=== PATIENT | female | born 1940 | race Caucasian/White ===

== ENCOUNTER 2021-06-21 18:22 | Inpatient (IN) | payer MEDICARE ==
[~2021-06-21] VITALS: Ht 152.4 cm; Wt 53.0 kg
[2021-06-21 18:49] LABS: BASO # 0.1 x10^3/uL (0.0-0.2); BASO % 1 % (0-3); EOS # 0.1 x10^3/uL (0.0-0.7); EOS % 1 % (0-3); HEMATOCRIT 38.9 % (36.0-47.0); HEMOGLOBIN 13.1 g/dL (12.0-15.5); LYMPH % 26 % (24-48); MEAN CORPUSCULAR HEMOGLOBIN 29 pg (25-35); MEAN CORPUSCULAR HGB CONC 34 g/dL (31-37); MEAN CORPUSCULAR VOLUME 87 fL (79-100); MONO # 0.5 x10^3/uL (0.0-1.1); MONO % 7 % (0-9); NEUT # 4.9 x10^3/uL (1.8-7.7); NEUT % 65 % (31-73); PLATELET COUNT 250 x10^3/uL (140-400); RED BLOOD COUNT 4.48 x10^6/uL (3.50-5.40); RED CELL DISTRIBUTION WIDTH 13.5 % (11.5-14.5); WHITE BLOOD COUNT 7.6 x10^3/uL (4.0-11.0)
[2021-06-21 19:07] LABS: ANION GAP 10 (6-14); BLOOD UREA NITROGEN 14 mg/dL (7-20); CARBON DIOXIDE 28 mmol/L (21-32); CHLORIDE 105 mmol/L (98-107); CREATININE 0.9 mg/dL (0.6-1.0); GFR 60.1; GLUCOSE 117 mg/dL (70-99); POTASSIUM 4.4 mmol/L (3.5-5.1); SODIUM 143 mmol/L (136-145)
[2021-06-21 19:21] LABS: ALBUMIN 3.3 g/dL (3.4-5.0); ALK PHOS 115 U/L (46-116); ALT (SGPT) 26 U/L (14-59); AST (SGOT) 34 U/L (15-37); CREATINE KINASE 65 U/L (26-192); DIRECT BILIRUBIN < 0.1 mg/dL (0.0-0.2); MAGNESIUM 2.3 mg/dL (1.8-2.4); TOTAL BILIRUBIN 0.5 mg/dL (0.2-1.0); TOTAL PROTEIN 6.4 g/dL (6.4-8.2)
--- NOTE | 2021-06-21 20:27 | PHYS DOC ---
Past Medical History Past Surgical History: Other Smoking Status: Unknown if ever smoked Alcohol Use: None General Adult EDM: Chief Complaint: ALTERED MENTAL STATUS HPI: HPI: Patient is a 81 year old female who presents with syncope at her correction, sudden, associated with a heart rate in the 40s on scene. When the patient arrives emergency department her vital signs are stable but she is quieter than normal as per family. Family says she had a very similar episode in February and went to , was admitted for couple of days and no explanation was found for the symptoms and she was discharged with plan to follow-up with a financial adviser which she has not yet done. Patient has a past medical history of Alzheimer's dementia and at her baseline is A and O x 1-2. As per the family no history of coronary disease or arrhythmia. Review of Systems: Review of Systems: Constitutional: Denies fever or chills. [] Eyes: Denies change in visual acuity. [] HENT: Denies nasal congestion or sore throat. [] Respiratory: Denies cough or shortness of breath. [] Cardiovascular: Denies chest pain or edema. [] GI: Denies abdominal pain, nausea, vomiting, bloody stools or diarrhea. [] : Denies dysuria. [] Musculoskeletal: Denies back pain or joint pain. [] Integument: Denies rash. [] Neurologic: Denies headache, focal weakness or sensory changes. [] Endocrine: Denies polyuria or polydipsia. [] Lymphatic: Denies swollen glands. [] Psychiatric: Denies depression or anxiety. [] Heart Score: C/O Chest Pain: No Risk Factors: Risk Factors: DM, Current or recent (<one month) smoker, HTN, HLP, family history of CAD, obesity. Risk Scores: Score 0 - 3: 2.5% MACE over next 6 weeks - Discharge Home Score 4 - 6: 20.3% MACE over next 6 weeks - Admit for Clinical Observation Score 7 - 10: 72.7% MACE over next 6 weeks - Early Invasive Strategies Physical Exam: PE: Constitutional: Well developed, well nourished, no acute distress, non-toxic appearance. [] HENT: Normocephalic, atraumatic, bilateral external ears normal, oropharynx moist, no oral exudates, nose normal. [] Eyes: PERRLA, EOMI, conjunctiva normal, no discharge. [] Neck: Normal range of motion, no tenderness, supple, no stridor. [] Cardiovascular:Heart rate regular rhythm, no murmur [] Lungs & Thorax: Bilateral breath sounds clear to auscultation [] Abdomen: Bowel sounds normal, soft, no tenderness, no masses, no pulsatile masses. [] Skin: Warm, dry, no erythema, no rash. [] Back: No tenderness, no CVA tenderness. [] Extremities: No tenderness, no cyanosis, no clubbing, ROM intact, no edema. [] Neurologic: Alert and oriented X 1, normal motor function, normal sensory function, no focal deficits noted. [] Psychologic: Affect blunt, depressed mood. [] Current Patient Data: Labs: Laboratory Tests Test 06/21/21 18:42 White Blood Count 7.6 x10^3/uL (4.0-11.0) Red Blood Count 4.48 x10^6/uL (3.50-5.40) Hemoglobin 13.1 g/dL (12.0-15.5) Hematocrit 38.9 % (36.0-47.0) Mean Corpuscular Volume 87 fL (79-100) Mean Corpuscular Hemoglobin 29 pg (25-35) Mean Corpuscular Hemoglobin Concent 34 g/dL (31-37) Red Cell Distribution Width 13.5 % (11.5-14.5) Platelet Count 250 x10^3/uL (140-400) Neutrophils (%) (Auto) 65 % (31-73) Lymphocytes (%) (Auto) 26 % (24-48) Monocytes (%) (Auto) 7 % (0-9) Eosinophils (%) (Auto) 1 % (0-3) Basophils (%) (Auto) 1 % (0-3) Neutrophils # (Auto) 4.9 x10^3/uL (1.8-7.7) Lymphocytes # (Auto) 2.0 x10^3/uL (1.0-4.8) Monocytes # (Auto) 0.5 x10^3/uL (0.0-1.1) Eosinophils # (Auto) 0.1 x10^3/uL (0.0-0.7) Basophils # (Auto) 0.1 x10^3/uL (0.0-0.2) Sodium Level 143 mmol/L (136-145) Potassium Level 4.4 mmol/L (3.5-5.1) Chloride Level 105 mmol/L (98-107) Carbon Dioxide Level 28 mmol/L (21-32) Anion Gap 10 (6-14) Blood Urea Nitrogen 14 mg/dL (7-20) Creatinine 0.9 mg/dL (0.6-1.0) Estimated GFR (Cockcroft-Gault) 60.1 Glucose Level 117 mg/dL (70-99) H Calcium Level 9.0 mg/dL (8.5-10.1) Magnesium Level 2.3 mg/dL (1.8-2.4) Total Bilirubin 0.5 mg/dL (0.2-1.0) Direct Bilirubin < 0.1 mg/dL (0.0-0.2) Aspartate Amino Transferase (AST) 34 U/L (15-37) Alanine Aminotransferase (ALT) 26 U/L (14-59) Alkaline Phosphatase 115 U/L (46-116) Ammonia 25 mcmol/L (11-34) Creatine Kinase 65 U/L (26-192) Troponin I High Sensitivity < 4 ng/L (4-50) L Total Protein 6.4 g/dL (6.4-8.2) Albumin 3.3 g/dL (3.4-5.0) L Laboratory Tests 06/21/21 18:42 Laboratory Tests 06/21/21 18:42 Vital Signs: Vital Signs Date Time Temp Pulse Resp B/P (MAP) Pulse Ox O2 Delivery O2 Flow Rate FiO2 06/21/21 18:35 98.6 67 18 102/54 (70) 95 Room Air 98.6 EKG: EKG: EKG done at 1827, normal sinus rhythm at a rate of 68, normal axis, normal intervals, T wave inversions in leads V1 through V4, no ST changes. Radiology/Procedures: Radiology/Procedures: CT head and chest x-ray Impression: No acute findings on head CT, chest x-ray with bilateral strandy airspace disease, possible atelectasis versus infectious process. Course & Med Decision Making: Course & Med Decision Making Pertinent Labs and Imaging studies reviewed. (See chart for details) Family was not present initially and work-up was intentionally broad to look for possible infection, acute coronary syndrome, arrhythmia, toxic metabolic s yndrome. After speak to the family I suspect the patient is suffering from symptomatic bradycardia but presently does not have any arrhythmia on her monitor. Long conversation with the family about discharge versus admission and agree that the safest course of action is admit the patient to telemetry overnight to see if she has any further arrhythmia and potentially consult with cardiology in the morning. Chest x-ray positive for bilateral strandy opacities, atelectasis versus infection. Patient does not have a fever, elevated white blood cell count, hypoxia or cough and at this time respiratory infection is less likely. Will swab for COVID and flu but we will not start treatment for pneumonia. Patient's , Cristian Amin, request that he be contacted the patient is going to be discharged as he would like to drive her back to her correction himself and prefer that she does not go by ambulance. 's phone number is [phone], or [phone] Vasyl Disclaimer: Vasyl Disclaimer: This electronic medical record was generated, in whole or in part, using a voice recognition dictation system. Departure Departure Impression: Primary Impression: Syncope and collapse Disposition: ADMITTED INPATIENT Condition: STABLE CHANDRA KELLY MD June 21, 2021 20:27
[2021-06-21] MEDS ORDERED: ONDANSETRON PF 4 MG/2 ML VIAL. IVP PRN (20:30)
[2021-06-21] MEDS ORDERED: ACETAMINOPHEN 325 MG TABLET. PO PRN (20:30)
[2021-06-21] MEDS ORDERED: IV NORMAL SALINE 1000ML BAG 1,000 ML IV ONE (20:45)
[2021-06-21 22:43] LABS: INFLUENZA A PATIENT NEGATIVE (NEGATIVE); INFLUENZA B PATIENT NEGATIVE (NEGATIVE)
[2021-06-21] MEDS ORDERED: DULO30CA2 PO (22:49)
[2021-06-21] MEDS ORDERED: POLY17PO29 PO (22:49)
[2021-06-21] MEDS ORDERED: MULT-650 PO (22:49)
[2021-06-21] MEDS ORDERED: ASPI-630 PO (22:49)
[2021-06-21] MEDS ORDERED: MAGN71.5 PO (22:49)
[2021-06-21] MEDS ORDERED: MEMA10TA PO (22:49)
[2021-06-21] MEDS ORDERED: LOPE2TAB27 PO (22:49)
[2021-06-22 00:05] VITALS: BP 174/121
--- NOTE | 2021-06-22 07:28 | PDOC1 ---
History and Physical Date of Admission Date of Admission DATE: 06/22/21 TIME: 07:25 Identification/Chief Complaint Chief Complaint Syncope Source Source: Caregiver, Chart review, Patient History of Present Illness History of Present Illness Ms Amin is an 81 year old female w/ PMHx alzheimer dementia who presents with syncope at her assisted living facility, sudden, associated with a heart rate in the 40s on scene. She was noted to get up after going to the restroom and sit down and after sitting down passed out per facility staff. She is a very poor historian due to poor recall related to her dementia. No prior hx of VTE, arrhythmias and no CAD. She was in ED in 02/10/2021 due to complains of syncope and discharge from there. There was no arrhythmias noted at that time and no acute changes were noted and no etiology in regards to syncope or recommendation to follow with cardiology. Patient has a past medical history of Alzheimer's dementia and at her baseline is A and O x 1-2. As per the family no history of coronary disease or arrhythmia. She is on Cymbalta 30 mg twice daily and Seroquel 25 mg during the day and 50 mg nightly as well as memantine 5 mg twice daily. Labs with WBC 7.6, Hb 13.1 platelets 250, NA 143, K4.4, BUN 14, CR 0.6, glucose 117, albumin 3.3 otherwise LFTs within normal laboratory limits, CK 65, high- sensitivity troponin is less than 4, ammonia is 25, rapid influenza negative, rapid COVID-19 negative EKG obliteration appears to be sinus rhythm rate of 68 bpm normal axis and intervals no ST changes, TWI in V1 V2 V3 V4. CT head with no acute bleed, chest radiograph with bibasilar hazy airspace dis ease. Past Medical History CENTRAL NERVOUS SYSTEM: Dementia Past Surgical History Past Surgical History: Other (Left breast lumpectomy) Family History Family History: Alzheimer's Disease Social History Smoke: No ALCOHOL: none Drugs: None Current Problem List Problem List Problems Medical Problems: (1) Syncope and collapse Status: Acute Current Medications Current Medications Current Medications Ondansetron HCl (Zofran) 4 mg PRN Q8HRS PRN IVP NAUSEA/VOMITING; Start 06/21/21 at 20:30; Stop 06/22/21 at 20:29; Status UNV Acetaminophen (Tylenol) 650 mg PRN Q4HRS PRN PO FEVER > 100.3'F; Start 06/21/21 at 20:30; Stop 06/22/21 at 20:29; Status UNV Sodium Chloride 1,000 ml @ 75 mls/hr 1X ONCE IV Last administered on 06/21/21at 20:45; Start 06/21/21 at 20:45; Stop 06/22/21 at 10:04; Status UNV Active Scripts Active Reported Slow-Mag (Magnesium Chloride) 71.5 Mg Tablet.dr 1 Tab PO BID 30 Days Miralax (Polyethylene Glycol 3350) 17 Gm Powd.pack 1 Packet PO DAILY 2 Days dissolve in water Namenda (Memantine Hcl) 10 Mg Tablet 1 Tab PO BID Loperamide (Loperamide Hcl) 2 Mg Tablet 1 Tab PO PRN Q6HRS PRN 30 Days Cymbalta (Duloxetine Hcl) 30 Mg Capsule.dr 1 Cap PO DAILY Centrum Silver Women Tablet (Multivits-Min/Iron/FA/Lutein) 1 Each Tablet 1 Each PO DAILY Aspirin 81 Mg Tab.chew 1 Tab PO DAILY Allergies Allergies: Coded Allergies: pentobarbital (Verified Allergy, Unknown, 06/22/21) ROS Review of System Not reliable patient denies everything. Significant dementia. General: No: Chills, Night Sweats, Fatigue, Malaise, Appetite, Other PSYCHOLOGICAL ROS: No: Anxiety, Behavioral Disorder, Concentration difficultie, Decreased libido, Depression, Disorientation, Hallucinations, Hostility, Irritablity, Memory difficulties, Mood Swings, Obsessive thoughts, Physical abuse, Sexual abuse, Sleep disturbances, Suicidal ideation, Other Eyes: No Blurry vision, No Decreased vision, No Double vision, No Dry eyes, No Excessive tearing, No Eye Pain, No Itchy Eyes, No Loss of vision, No Photophobia, No Scotomata, No Uses contacts, No Uses glasses, No Other HEENT: No: Heacaches, Visual Changes, Hearing change, Nasal congestion, Nasal discharge, Oral lesions, Sinus pain, Sore Throat, Epistaxis, Sneezing, Snoring, Tinnitus, Vertigo, Vocal changes, Other ALLERGY AND IMMUNOLOGY: No: Hives, Insect Bite Sensitivity, Itchy/Watery Eyes, Nasal Congestion, Post Nasal Drip, Seasonal Allergies, Other Hematological and Lymphatic: No: Bleeding Problems, Blood Clots, Blood Transfusions, Brusing, Night Sweats, Pallor, Swollen Lymph Nodes, Other ENDOCRINE: No: Breast Changes, Galactorrhea, Hair Pattern Changes, Hot Flashes, Malaise/lethargy, Mood Swings, Palpitations, Polydipsia/polyuria, Skin Changes, Temperature Intolerance, Unexpected Weight Changes, Other Breast: No New/Changing Breast Lumps, No Nipple changes, No Nipple discharge, No Other Respiratory: No: Cough, Hemoptysis, Orthopnea, Pleuritic Pain, Shortness of breath, SOB with excertion, Sputum Changes, Stridor, Tachypnea, Wheezing, Other Cardiovascular: No Chest Pain, No Palpitations, No Orthopnea, No Paroxysmal Noc. Dyspnea, No Edema, No Lt Headedness, No Other Gastrointestinal: No Nausea, No Vomiting, No Abdominal Pain, No Diarrhea, No Constipation, No Melena, No Hematochezia, No Other Genitourinary: No Dysuria, No Frequency, No Incontinence, No Hematuria, No Retention, No Discharge, No Urgency, No Pain, No Flank Pain, No Other, No , No , No , No , No , No , No Musculoskeletal: No Gait Disturbance, No Joint Pain, No Joint Stiffness, No Joint Swelling, No Muscle Pain, No Muscular Weakness, No Pain In:, No Swelling In:, No Other Neurological: No Behavorial Changes, No Bowel/Bladder ControlChng, No Confusion, No Dizziness, No Gait Disturbance, No Headaches, No Impaired Coord/balance, No Memory Loss, No Numbness/Tingling, No Seizures, No Speech Problems, No Tremors, No Visual Changes, No Weakness, No Other Skin: No Dry Skin, No Eczema, No Hair Changes, No Lumps, No Mole Changes, No Mottling, No Nail Changes, No Pruritus, No Rash, No Skin Lesion Changes, No Other, No Acne Physical Exam General: Alert, Cooperative, No acute distress HEENT: Atraumatic, PERRLA, EOMI, Mucous membr. moist/pink Lungs: Clear to auscultation, Normal air movement Heart: S1S2, RRR, no thrills, no rubs, no gallops, no murmurs Abdomen: Normal bowel sounds, Soft, No tenderness, No hepatosplenomegaly, No masses Rectal Exam: not examined Extremities: No clubbing, No cyanosis, No edema, Normal pulses, No tenderness/swelling Skin: No rashes, No breakdown, No significant lesion Neuro: Normal gait, Normal speech, Strength at 5/5 X4 ext, Normal tone, Sensation intact, Cranial nerves 3-12 NL, Reflexes 2+ Psych/Mental Status: Mental status NL, Mood NL Vitals Vitals Vital Signs Date Time Temp Pulse Resp B/P (MAP) Pulse Ox O2 Delivery O2 Flow Rate FiO2 06/22/21 00:05 98.2 69 18 174/121 (138) 98 Room Air 98.2 Labs Labs Laboratory Tests Test 06/21/21 18:42 06/21/21 21:45 White Blood Count 7.6 x10^3/uL (4.0-11.0) Red Blood Count 4.48 x10^6/uL (3.50-5.40) Hemoglobin 13.1 g/dL (12.0-15.5) Hematocrit 38.9 % (36.0-47.0) Mean Corpuscular Volume 87 fL (79-100) Mean Corpuscular Hemoglobin 29 pg (25-35) Mean Corpuscular Hemoglobin Concent 34 g/dL (31-37) Red Cell Distribution Width 13.5 % (11.5-14.5) Platelet Count 250 x10^3/uL (140-400) Neutrophils (%) (Auto) 65 % (31-73) Lymphocytes (%) (Auto) 26 % (24-48) Monocytes (%) (Auto) 7 % (0-9) Eosinophils (%) (Auto) 1 % (0-3) Basophils (%) (Auto) 1 % (0-3) Neutrophils # (Auto) 4.9 x10^3/uL (1.8-7.7) Lymphocytes # (Auto) 2.0 x10^3/uL (1.0-4.8) Monocytes # (Auto) 0.5 x10^3/uL (0.0-1.1) Eosinophils # (Auto) 0.1 x10^3/uL (0.0-0.7) Basophils # (Auto) 0.1 x10^3/uL (0.0-0.2) Sodium Level 143 mmol/L (136-145) Potassium Level 4.4 mmol/L (3.5-5.1) Chloride Level 105 mmol/L (98-107) Carbon Dioxide Level 28 mmol/L (21-32) Anion Gap 10 (6-14) Blood Urea Nitrogen 14 mg/dL (7-20) Creatinine 0.9 mg/dL (0.6-1.0) Estimated GFR (Cockcroft-Gault) 60.1 Glucose Level 117 mg/dL (70-99) Calcium Level 9.0 mg/dL (8.5-10.1) Magnesium Level 2.3 mg/dL (1.8-2.4) Total Bilirubin 0.5 mg/dL (0.2-1.0) Direct Bilirubin < 0.1 mg/dL (0.0-0.2) Aspartate Amino Transf (AST/SGOT) 34 U/L (15-37) Alanine Aminotransferase (ALT/SGPT) 26 U/L (14-59) Alkaline Phosphatase 115 U/L (46-116) Ammonia 25 mcmol/L (11-34) Creatine Kinase 65 U/L (26-192) Troponin I High Sensitivity < 4 ng/L (4-50) Total Protein 6.4 g/dL (6.4-8.2) Albumin 3.3 g/dL (3.4-5.0) Influenza Type A Antigen Negative (NEGATIVE) Influenza Type B Antigen Negative (NEGATIVE) SARS-CoV-2 Antigen (Rapid) Negative (NEGATIVE) Laboratory Tests Test 06/21/21 18:42 06/21/21 21:45 White Blood Count 7.6 x10^3/uL (4.0-11.0) Red Blood Count 4.48 x10^6/uL (3.50-5.40) Hemoglobin 13.1 g/dL (12.0-15.5) Hematocrit 38.9 % (36.0-47.0) Mean Corpuscular Volume 87 fL (79-100) Mean Corpuscular Hemoglobin 29 pg (25-35) Mean Corpuscular Hemoglobin Concent 34 g/dL (31-37) Red Cell Distribution Width 13.5 % (11.5-14.5) Platelet Count 250 x10^3/uL (140-400) Neutrophils (%) (Auto) 65 % (31-73) Lymphocytes (%) (Auto) 26 % (24-48) Monocytes (%) (Auto) 7 % (0-9) Eosinophils (%) (Auto) 1 % (0-3) Basophils (%) (Auto) 1 % (0-3) Neutrophils # (Auto) 4.9 x10^3/uL (1.8-7.7) Lymphocytes # (Auto) 2.0 x10^3/uL (1.0-4.8) Monocytes # (Auto) 0.5 x10^3/uL (0.0-1.1) Eosinophils # (Auto) 0.1 x10^3/uL (0.0-0.7) Basophils # (Auto) 0.1 x10^3/uL (0.0-0.2) Sodium Level 143 mmol/L (136-145) Potassium Level 4.4 mmol/L (3.5-5.1) Chloride Level 105 mmol/L (98-107) Carbon Dioxide Level 28 mmol/L (21-32) Anion Gap 10 (6-14) Blood Urea Nitrogen 14 mg/dL (7-20) Creatinine 0.9 mg/dL (0.6-1.0) Estimated GFR (Cockcroft-Gault) 60.1 Glucose Level 117 mg/dL (70-99) Calcium Level 9.0 mg/dL (8.5-10.1) Magnesium Level 2.3 mg/dL (1.8-2.4) Total Bilirubin 0.5 mg/dL (0.2-1.0) Direct Bilirubin < 0.1 mg/dL (0.0-0.2) Aspartate Amino Transf (AST/SGOT) 34 U/L (15-37) Alanine Aminotransferase (ALT/SGPT) 26 U/L (14-59) Alkaline Phosphatase 115 U/L (46-116) Ammonia 25 mcmol/L (11-34) Creatine Kinase 65 U/L (26-192) Troponin I High Sensitivity < 4 ng/L (4-50) Total Protein 6.4 g/dL (6.4-8.2) Albumin 3.3 g/dL (3.4-5.0) Influenza Type A Antigen Negative (NEGATIVE) Influenza Type B Antigen Negative (NEGATIVE) SARS-CoV-2 Antigen (Rapid) Negative (NEGATIVE) Images Images CT HEAD WO CONTRAST CT head without contrast HISTORY: Syncope, altered mental status. PQRS statement: CT scans at this facility use dose reduction including either automated exposure control, iterative reconstructions, and /or weight based radiation dosing via mA and kV modification when appropriate to reduce radiation dose to as low as reasonably achievable. FINDINGS: Generalized brain atrophy. There is asymmetric atrophy of the right anterior temporal lobe and hippocampus, this could be due to old trauma or old infarct, mesial temporal sclerosis, or neuro degeneration associated with some dementias. Cerebral periventricular white matter hypoattenuation may be changes of advanced chronic microvascular ischemic disease. No intracranial hemorrhage, mass, obstructive hydrocephalus or infarction. Orbits, mastoids and bones are unremarkable. IMPRESSION: No acute abnormality. See above. PORTABLE CHEST 1V Exam: Chest one view INDICATION: Syncope, bradycardia TECHNIQUE: Frontal view of the chest Comparisons: None FINDINGS: The cardiomediastinal silhouette and pulmonary vessels are within normal limits. Strandy opacities the dependent portion of the lungs likely representing atelectasis. No pleural effusion. IMPRESSION: VTE Prophylaxis Ordered VTE Prophylaxis Devices: No VTE Pharmacological Prophylaxi: Yes Assessment/Plan Assessment/Plan Syncope - likely vasovagal, will check orthostatics we will check carotid Dopplers check echocardiogram. Daughter and have made it clear that they do not want an intensive work-up and would like to go back maybe with a reduced medication regimen Reported bradycardia -not noted on the inpatient side or on EKG. Alzheimers dementia -on Namenda as well as supplemental Cymbalta and Seroquel we will back off on Cymbalta once daily. Elevated blood pressure without a diagnosis of hypertension FEN - Regular PPX - SCDs FULL CODE Dispo -observation Patient's , Cristian Amin, request that he be contacted the patient is going to be discharged as he would like to drive her back to her halfway himself and prefer that she does not go by ambulance. 's phone number is [phone], or [phone] Justifications for Admission Other Justification HALIMA RAMIREZ MD June 22, 2021 07:28
[2021-06-22] MEDS ORDERED: hydrALAZINE 20 MG/ML VIAL. IVP PRN (07:30)
--- NOTE | 2021-06-22 07:48 | RAD ---
CT head without contrast HISTORY: Syncope, altered mental status. PQRS statement: CT scans at this facility use dose reduction including either automated exposure cont rol, iterative reconstructions, and /or weight based radiation dosing via mA and kV modification when appropriate to reduce radiation dose to as low as reasonably achievable. FINDINGS: Generalized brain atrophy. There is asymmetric atrophy of the right anterior temporal lobe and hippocampus, this could be due to old trauma or old infarct, mesial temporal sclerosis, or neuro degeneration associated with some dementias. Cerebral periventricular white matter hypoattenuation m ay be changes of advanced chronic microvascular ischemic disease. No intracranial hemorrhage, mass, o bstructive hydrocephalus or infarction. Orbits, mastoids and bones are unremarkable. IMPRESSION: No acute abnormality. See above. Electronically signed by: Alex Hull MD (06/21/2021 7:39 PM) [facility]MARY CARMEN
--- NOTE | 2021-06-22 07:48 | RAD ---
Exam: Chest one view INDICATION: Syncope, bradycardia TECHNIQUE: Frontal view of the chest Comparisons: None FINDINGS: The cardiomediastinal silhouette and pulmonary vessels are within normal limits. Strandy opacities the dependent portion of the lungs likely representing atelectasis. No pleural effu greg. IMPRESSION: Strandy bibasilar airspace disease may relate to atelectasis or developing infectious process. Electronically signed by: Miriam Domingo MD (06/21/2021 7:51 PM) [facility]
--- NOTE | 2021-06-22 07:51 | EKG ---
[facility] [address] [place] [address] Test Date: 2021-06-21 Test Time: 18:27:35 Pat Name: HOLDEN LAINEZ Department: Room: [facility] Gender: F [employer]: : 1940 Requested By: CHANDRA KELLY Order Number: [id number] Reading MD: Melvin Lewis MD Measurements Intervals [place] Rate: 68 P: 37 ID: [id number] QRS: -49 QRSD: 92 T: 41 QT: 410 QTc: 436 Interpretive Statements SINUS RHYTHM DIFFUSE NON-SPECIFIC ST/T CHANGES Electronically Signed On 06-22-2021 11:26:23 CDT by Melvin Lewis MD
[2021-06-22 08:15] VITALS: BP 171/61
[2021-06-22] MEDS ORDERED: LOPERAMIDE 2 MG CAPSULE PO PRN (08:15)
[2021-06-22 08:38] LABS: ALBUMIN 3.2 g/dL (3.4-5.0); ALBUMIN/GLOBULIN RATIO 0.8 (1.0-1.7); CALCIUM 8.6 mg/dL (8.5-10.1); CREATININE 0.9 mg/dL (0.6-1.0); GFR 60.1; POTASSIUM 3.8 mmol/L (3.5-5.1); TOTAL BILIRUBIN 0.4 mg/dL (0.2-1.0)
[2021-06-22] MEDS ORDERED: ASPIRIN CHEWABLE 81 MG TABLET. PO SCH (09:00)
[2021-06-22] MEDS ORDERED: DULoxetine HCL 30 MG CAPSULE.DR PO SCH (09:00)
[2021-06-22] MEDS ORDERED: MULTIVITAMIN with MINERAL TABLET. PO SCH (09:00)
[2021-06-22] MEDS ORDERED: ENOXAPARIN 40 MG/0.4 ML SYRINGE. SQ SCH (09:00)
[2021-06-22] MEDS: MAGNESIUM CHLORIDE ER 64 MG TABLET.ER PO SCH ×2 (09:00→09:06)
[2021-06-22] MEDS ORDERED: POLYETHYLENE GLYCOL 3350 17 GM PACKET. PO SCH (09:00)
[2021-06-22] MEDS ORDERED: MEMANTINE 10 MG TABLET. PO SCH (09:00)
--- NOTE | 2021-06-22 10:02 | PDOC2 ---
VINEET MURPHY [employer] [facility] 06/22/21 1002: CARDIAC CONSULT DATE OF CONSULT Date of Consult DATE: 06/22/21 TIME: 09:58 REASON FOR CONSULT Reason for Consult: Syncope REFERRING PHYSICIAN Referring Physician: Carri SOURCE Source: Chart review, Patient HISTORY OF PRESENT ILLNESS HISTORY OF PRESENT ILLNESS This is an 81 yo female admitted for possible syncope. This could not be ascertained. Apparently she was taken out for Frosty treat by her and brought her back to the facility and then he went home. When he got back home he was then told that the pt was brought to ED. Per staff she was eating dinner whe n suddenly she became pale and was not responding. It appears the duration was short and when the EMS came she was noted with HR in the 40s. No noted complains of chest pain or SOA. No vomiting and no notation of seziure signs. She is a very poor historian due to poor recall related to her dementia. No prior hx of VTE, arrhythmias and no CAD. She was in ED in 02/10/2021 due to complains of syncope and discharge from there. There was no arrhythmias noted at that time and no acute changes were noted and no etiology in regards to syncope or recommendation to follow with cardiology. PAST MEDICAL HISTORY CENTRAL NERVOUS SYSTEM: Dementia GI: Diverticulosis Heme/Onc: Cancer (breast) Musculoskeletal: Osteoarthritis ENT: Sincusitis PAST SURGICAL HISTORY Past Surgical History: Other (left lumpectomy) FAMILY HISTORY Family History noncontributory to CV SOCIAL HISTORY Smoke: No ALCOHOL: none Drugs: None Lives: [facility] CURRENT MEDICATIONS CURRENT MEDICATIONS Current Medications Medications (Trade) Dose Ordered Sig/Reynaldo Route PRN Reason Start Time Stop Time Status Last Admin Dose Admin Sodium Chloride 1,000 ml @ 75 mls/hr 1X ONCE IV 06/21/21 20:45 06/22/21 10:04 06/21/21 20:45 Aspirin (Aspirin Chewable) 81 mg DAILY PO 06/22/21 09:00 06/22/21 09:07 ALLERGIES ALLERGIES: Coded Allergies: pentobarbital (Verified Allergy, Unknown, 06/22/21) ROS Review of System limited, poor recall PHYSICAL EXAM General: Alert, Oriented X3, Cooperative, No acute distress HEENT: Atraumatic, Mucous membr. moist/pink Lungs: Clear to auscultation, Normal air movement Heart: Regular rate (SR), Normal S1, Normal S2, Other (2/6 systolic murmur to LLS border) Abdomen: Soft, No tenderness Extremities: No cyanosis, No edema Skin: No breakdown, No significant lesion Neuro: Normal speech, Sensation intact Psych/Mental Status: Mood NL, Other (poor recall, pleasant) MUSCULOSKELETAL: Osteoarthritic changes both hands VITALS/I&O VITALS/I&O: Vital Signs Date Time Temp Pulse Resp B/P (MAP) Pulse Ox O2 Delivery O2 Flow Rate FiO2 06/22/21 08:15 97.7 69 18 171/61 (97) 97 Room Air 97.7 LABS Lab: Laboratory Tests Test 06/21/21 18:42 06/21/21 21:45 06/22/21 07:40 White Blood Count 7.6 x10^3/uL (4.0-11.0) Red Blood Count 4.48 x10^6/uL (3.50-5.40) Hemoglobin 13.1 g/dL (12.0-15.5) Hematocrit 38.9 % (36.0-47.0) Mean Corpuscular Volume 87 fL (79-100) Mean Corpuscular Hemoglobin 29 pg (25-35) Mean Corpuscular Hemoglobin Concent 34 g/dL (31-37) Red Cell Distribution Width 13.5 % (11.5-14.5) Platelet Count 250 x10^3/uL (140-400) Neutrophils (%) (Auto) 65 % (31-73) Lymphocytes (%) (Auto) 26 % (24-48) Monocytes (%) (Auto) 7 % (0-9) Eosinophils (%) (Auto) 1 % (0-3) Basophils (%) (Auto) 1 % (0-3) Neutrophils # (Auto) 4.9 x10^3/uL (1.8-7.7) Lymphocytes # (Auto) 2.0 x10^3/uL (1.0-4.8) Monocytes # (Auto) 0.5 x10^3/uL (0.0-1.1) Eosinophils # (Auto) 0.1 x10^3/uL (0.0-0.7) Basophils # (Auto) 0.1 x10^3/uL (0.0-0.2) Sodium Level 143 mmol/L (136-145) 144 mmol/L (136-145) Potassium Level 4.4 mmol/L (3.5-5.1) 3.8 mmol/L (3.5-5.1) Chloride Level 105 mmol/L (98-107) 108 mmol/L (98-107) H Carbon Dioxide Level 28 mmol/L (21-32) 29 mmol/L (21-32) Anion Gap 10 (6-14) 7 (6-14) Blood Urea Nitrogen 14 mg/dL (7-20) 13 mg/dL (7-20) Creatinine 0.9 mg/dL (0.6-1.0) 0.9 mg/dL (0.6-1.0) Estimated GFR (Cockcroft-Gault) 60.1 60.1 Glucose Level 117 mg/dL (70-99) H 89 mg/dL (70-99) Calcium Level 9.0 mg/dL (8.5-10.1) 8.6 mg/dL (8.5-10.1) Magnesium Level 2.3 mg/dL (1.8-2.4) Total Bilirubin 0.5 mg/dL (0.2-1.0) 0.4 mg/dL (0.2-1.0) Direct Bilirubin < 0.1 mg/dL (0.0-0.2) Aspartate Amino Transferase (AST) 34 U/L (15-37) 19 U/L (15-37) Alanine Aminotransferase (ALT) 26 U/L (14-59) 19 U/L (14-59) Alkaline Phosphatase 115 U/L (46-116) 129 U/L (46-116) H Ammonia 25 mcmol/L (11-34) Creatine Kinase 65 U/L (26-192) Troponin I High Sensitivity < 4 ng/L (4-50) L Total Protein 6.4 g/dL (6.4-8.2) 7.0 g/dL (6.4-8.2) Albumin 3.3 g/dL (3.4-5.0) L 3.2 g/dL (3.4-5.0) L Influenza Type A Antigen Negative (NEGATIVE) Influenza Type B Antigen Negative (NEGATIVE) SARS-CoV-2 Antigen (Rapid) Negative (NEGATIVE) BUN/Creatinine Ratio 14 (6-20) Albumin/Globulin Ratio 0.8 (1.0-1.7) L Laboratory Tests 06/21/21 18:42 Laboratory Tests 06/21/21 18:42 06/22/21 07:40 IMAGES IMAGES IMPRESSION at [facility] CT head: 1. No intracranial hemorrhage or calvarial fracture. 2. Mild to moderate cerebral volume loss, asymmetrically greater temporal lobes. Additional moderate bilateral supratentorial white matter hypodensities, nonspecific though likely related to chronic microvascular ischemic changes in a patient this age. CT cervical spine: 1. No acute fracture. Multilevel mild grade 1 anterolisthesis that appears degenerative. 2. Degenerative changes in the cervical spine with areas of at least mild central canal and neural foraminal narrowing. 3. Tiny 0.4 cm noncalcified pulmonary nodule the left lung apex, nonspecific though favored for a benign etiology such as a noncalcified granuloma given the presence of additional partially calcified nodule/granuloma at the right apex. A malignant nodule such as a metastasis is felt less likely, though given reported history of breast cancer, follow-up CT chest in 3-6 months is recommended for further evaluation (in the absence of prior outside exam showing long-term stability). 02/10/2021 ASSESSMENT/PLAN ASSESSMENT/PLAN 1. Syncope: unknown etiology. possible vasovagal 2. Reported bradycardia in the 40s: no strips available and as inpt no bradycardia nor any arrhythmias. 3. Alzheimers dementia: not on aricept 4. HTN: wide swings, no noted regimen Recommendations 1. TTE 2. Discussed with spouse and very hesitant [facility] and wanting to discuss with his children first. He is upset and and not happy [place] [facility] and will consult SS 3. Supportive care. Monitor BP trend. NICOLASA COATS MD 06/23/21 1142: CARDIAC CONSULT ASSESSMENT/PLAN ASSESSMENT/PLAN Late entry for 06/22/2021 The patient was seen and interviewed as well as examined at the bedside. The chart was reviewed. The case was discussed. Agree with the plan of care. VINEET MURPHY APRN June 22, 2021 10:02 NICOLASA COATS MD June 23, 2021 11:42
[2021-06-22 10:24] LABS: BASO # 0.1 x10^3/uL (0.0-0.2); BASO % 1 % (0-3); EOS # 0.1 x10^3/uL (0.0-0.7); EOS % 2 % (0-3); HEMATOCRIT 41.6 % (36.0-47.0); HEMOGLOBIN 13.6 g/dL (12.0-15.5); LYMPH # 2.1 x10^3/uL (1.0-4.8); LYMPH % 25 % (24-48); MEAN CORPUSCULAR HEMOGLOBIN 29 pg (25-35); MEAN CORPUSCULAR HGB CONC 33 g/dL (31-37); MEAN CORPUSCULAR VOLUME 90 fL (79-100); MONO # 0.5 x10^3/uL (0.0-1.1); MONO % 6 % (0-9); NEUT # 5.6 x10^3/uL (1.8-7.7); NEUT % 66 % (31-73); PLATELET COUNT 234 x10^3/uL (140-400); RED BLOOD COUNT 4.65 x10^6/uL (3.50-5.40); RED CELL DISTRIBUTION WIDTH 13.7 % (11.5-14.5); WHITE BLOOD COUNT 8.4 x10^3/uL (4.0-11.0)
[2021-06-22 10:49] VITALS: BP 150/76
--- NOTE | 2021-06-22 11:02 | NUR ---
SS following for discharge planning. SS reviewed pt chart and discussed with pt RN. Pt is from the [facility], - fax [phone], and is currently on room air. COVID19 negative. Cardiology consulted. SS will continue to follow for discharge planning.
--- NOTE | 2021-06-22 14:46 | CARD ---
MR#: [id number] Date of Study: 06/22/2021 Ordering Physician: HALIMA RAMIREZ, Referring Physician: HALIMA RAMIREZ, Tech: Leyla Dougherty [facility] APPROVED REPORT EXAM: Two-dimensional and M-mode echocardiogram with Doppler and color Doppler. Other Information Quality : Technically LimitedHR: 64bpm Rhythm : NSR INDICATION 2D DIMENSIONS Left Atrium(2D)3.5 (1.6-4.0cm)IVSd1.0 (0.7-1.1cm) Aortic Root(2D)2.7 (2.0-3.7cm)LVDd4.2 (3.9-5.9cm) LVOT Diameter2.1 (1.8-2.4cm)PWd1.0 (0.7-1.1cm) IVSs1.5 (0.8-1.2cm)LVDs3.1 (2.5-4.0cm) FS (%) 26.1 %PWs1.2 (0.8-1.2cm) SV40.6 mlLVEF(%)51.6 (>50%) Aortic Valve AoV Peak Ramana.104.5cm/sAoV VTI20.8cm AO Peak GR.4.4mmHgLVOT Peak Ramana.94.4cm/s LVOT VTI 20.32cmAO Mean GR.2mmHg PABLO (VMAX)2.44vw6BFD (VTI)3.49cm2 Mitral Valve MV E Cthulrnn51.7cm/sMV DECEL VOAB185lk MV A Kzkvbtmj845.9cm/sMV MSN45ev E/A Ratio0.7MVA (PHT)2.67cm2 TDI E/Lateral E'11.2E/Medial E'8.8 LEFT VENTRICLE The left ventricle is normal size. There is normal left ventricular wall thickness. The left ventricu lar systolic function is normal. Estimated ejection fraction 60%. There is normal LV segmental wall motion. Transmitral Doppler flow pattern is Grade I-abnormal relaxation pattern. RIGHT VENTRICLE The right ventricle is normal size. There is normal right ventricular wall thickness. The right ventr icular systolic function is normal. ATRIA The left atrium size is normal. The right atrium size is normal. The interatrial septum is intact wit h no evidence for an atrial septal defect or patent foramen ovale as noted on 2-D or Doppler imaging. AORTIC VALVE The aortic valve is normal in structure and function. Doppler and Color Flow revealed no significant aortic regurgitation. There is no significant aortic valvular stenosis. MITRAL VALVE The mitral valve is normal in structure and function. There is no evidence of mitral valve prolapse. There is no mitral valve stenosis. Doppler and Color-flow revealed trace mitral regurgitation. TRICUSPID VALVE The tricuspid valve is normal in structure and function. Doppler and Color Flow revealed trace tricus pid regurgitation. Estimated PAP 21 mmHg. There is no tricuspid valve stenosis. PULMONIC VALVE The pulmonary valve is normal in structure and function. Doppler and Color Flow revealed no pulmonic valvular regurgitation. GREAT VESSELS The aortic root is normal in size. The ascending aorta is normal in size. The IVC is normal in size a nd collapses >50% with inspiration. PERICARDIAL EFFUSION There is no evidence of significant pericardial effusion. Critical Notification Critical Value: No <Conclusion> The left ventricular systolic function is normal. Estimated ejection fraction 60%. There is normal LV segmental wall motion. Transmitral Doppler flow pattern is Grade I-abnormal relaxation pattern. Trace mitral regurgitation. Trace tricuspid regurgitation. Estimated PAP 21 mmHg. There is no evidence of significant pericardial effusion. Signed by : Ant Leach, Electronically Approved : 06/22/2021 14:46:03
--- NOTE | 2021-06-22 14:46 | SNU/HH DC ---
DISCHARGE WITH HOME HEALTH DISCHARGE INFORMATION: Discharge Date: June 22, 2021 Final Diagnosis: Problems Medical Problems: (1) Syncope and collapse Status: Acute Condition on Discharge: Stable CODE STATUS: Code Status: DNR/DNI HOME HEALTH: Face to Face: I certify this patient is under my care and that I, or a nurse practitioner or physician's family readiness support assistant working with me, had a face to face encounter that meets the physician face to face encounter requirements with this patient on 06/22/2021. Medical Complications: Dementia Detention For: Assess Cardiopulm Status, Assess & Educate Safety, Assess/Skilled Observatio, Medication Management RN For Eval/Treatment: Yes Physical Therapy For: Evalulation/Treatment Occupational Therapy For: Evaluation/Treatment Pt Meets Homebound Status: Frequent falls w/ injury, Poor cognition, Psychological condition POST DISCHARGE ORDERS: Activity Instructions for Disc: Resume previous activity, Activity as tolerated Weight Bearing Status after Di: Full weight bearing DIET AFTER DISCHARGE: Regular Wound/Incision Care: No wound care needed CHECKS AFTER DISCHARGE: Checks after discharge: Check blood press - daily, Check your Temp as needed FOLLOW-UP: Follow Up With: Primary care provider in 2 weeks Additional Instructions: Would recommend decreasing Cymbalta to once daily for 2 weeks and then take every other day for 2 weeks and then stop if adjunctive antidepressant therapy is necessary would recommend Celexa 10 mg daily. Would recommend discontinuing Seroquel during the day and reduced to 25 mg at night. TREATMENT/EQUIPMENT ORDERS: Adaptive Equipment Issued: None CERTIFICATION STATEMENT: Certification Statement: Certification Statement: Based on the above finding, I certify that this patient is confined to the home and needs intermittent intermediate care, physical therapy and/or speech therapy, or continues to need occupational therapy.~ This patient is under my care, and I have initiated the establishment of the plan of care.~ This patient will be followed by myself or a community physician who will periodically review the plan of care. Home Meds Reported Medications Magnesium Chloride (SLOW-MAG) 71.5 Mg Tablet.dr, 1 TAB PO BID for mag lvl for 30 Days, #60 TAB 0 Refills 06/21/21 Polyethylene Glycol 3350 (MIRALAX) 17 Gm Powd.pack, 1 PACKET PO DAILY for constipation for 2 Days, #2 PACKET 0 Refills dissolve in water 06/21/21 Memantine Hcl (NAMENDA) 10 Mg Tablet, 1 TAB PO BID for memory , #180 TAB 1 Refill 06/21/21 Loperamide Hcl (LOPERAMIDE) 2 Mg Tablet, 1 TAB PO PRN Q6HRS PRN for DIARRHEA for 30 Days, TAB 0 Refills 06/21/21 Duloxetine Hcl (CYMBALTA) 30 Mg Capsule.dr, 1 CAP PO DAILY for home med, #30 CAP 5 Refills 06/21/21 Multivits-Min/Iron/FA/Lutein (Centrum Silver Women Tablet) 1 Each Tablet, 1 EACH PO DAILY for vitamin , TAB 06/21/21 Aspirin (ASPIRIN) 81 Mg Tab.chew, 1 TAB PO DAILY for blood thinner , #30 TAB 3 Refills 06/21/21 HALIMA RAMIREZ MD June 22, 2021 14:45
--- NOTE | 2021-06-22 14:50 | PDOC3 ---
Discharge Summary Visit Information Date of Admission: June 21, 2021 Date of Discharge: June 22, 2021 Admitting Diagnosis: Syncope Final Diagnosis Problems Medical Problems: (1) Syncope and collapse Status: Acute Brief Hospital Course Allergies Allergies Coded Allergies Type Severity Reaction Last Updated Verified pentobarbital Allergy Unknown 06/22/21 Yes Vital Signs Vital Signs Date Time Temp Pulse Resp B/P (MAP) Pulse Ox O2 Delivery O2 Flow Rate FiO2 06/22/21 10:49 97.6 70 18 150/76 (100) 96 Room Air 97.6 Lab Results Laboratory Tests Test 06/21/21 18:42 06/21/21 21:45 06/22/21 07:40 06/22/21 09:26 White Blood Count 7.6 x10^3/uL (4.0-11.0) 8.4 x10^3/uL (4.0-11.0) Red Blood Count 4.48 x10^6/uL (3.50-5.40) 4.65 x10^6/uL (3.50-5.40) Hemoglobin 13.1 g/dL (12.0-15.5) 13.6 g/dL (12.0-15.5) Hematocrit 38.9 % (36.0-47.0) 41.6 % (36.0-47.0) Mean Corpuscular Volume 87 fL (79-100) 90 fL (79-100) Mean Corpuscular Hemoglobin 29 pg (25-35) 29 pg (25-35) Mean Corpuscular Hemoglobin Concent 34 g/dL (31-37) 33 g/dL (31-37) Red Cell Distribution Width 13.5 % (11.5-14.5) 13.7 % (11.5-14.5) Platelet Count 250 x10^3/uL (140-400) 234 x10^3/uL (140-400) Neutrophils (%) (Auto) 65 % (31-73) 66 % (31-73) Lymphocytes (%) (Auto) 26 % (24-48) 25 % (24-48) Monocytes (%) (Auto) 7 % (0-9) 6 % (0-9) Eosinophils (%) (Auto) 1 % (0-3) 2 % (0-3) Basophils (%) (Auto) 1 % (0-3) 1 % (0-3) Neutrophils # (Auto) 4.9 x10^3/uL (1.8-7.7) 5.6 x10^3/uL (1.8-7.7) Lymphocytes # (Auto) 2.0 x10^3/uL (1.0-4.8) 2.1 x10^3/uL (1.0-4.8) Monocytes # (Auto) 0.5 x10^3/uL (0.0-1.1) 0.5 x10^3/uL (0.0-1.1) Eosinophils # (Auto) 0.1 x10^3/uL (0.0-0.7) 0.1 x10^3/uL (0.0-0.7) Basophils # (Auto) 0.1 x10^3/uL (0.0-0.2) 0.1 x10^3/uL (0.0-0.2) Sodium Level 143 mmol/L (136-145) 144 mmol/L (136-145) Potassium Level 4.4 mmol/L (3.5-5.1) 3.8 mmol/L (3.5-5.1) Chloride Level 105 mmol/L (98-107) 108 mmol/L (98-107) Carbon Dioxide Level 28 mmol/L (21-32) 29 mmol/L (21-32) Anion Gap 10 (6-14) 7 (6-14) Blood Urea Nitrogen 14 mg/dL (7-20) 13 mg/dL (7-20) Creatinine 0.9 mg/dL (0.6-1.0) 0.9 mg/dL (0.6-1.0) Estimated GFR (Cockcroft-Gault) 60.1 60.1 Glucose Level 117 mg/dL (70-99) 89 mg/dL (70-99) Calcium Level 9.0 mg/dL (8.5-10.1) 8.6 mg/dL (8.5-10.1) Magnesium Level 2.3 mg/dL (1.8-2.4) Total Bilirubin 0.5 mg/dL (0.2-1.0) 0.4 mg/dL (0.2-1.0) Direct Bilirubin < 0.1 mg/dL (0.0-0.2) Aspartate Amino Transf (AST/SGOT) 34 U/L (15-37) 19 U/L (15-37) Alanine Aminotransferase (ALT/SGPT) 26 U/L (14-59) 19 U/L (14-59) Alkaline Phosphatase 115 U/L (46-116) 129 U/L (46-116) Ammonia 25 mcmol/L (11-34) Creatine Kinase 65 U/L (26-192) Troponin I High Sensitivity < 4 ng/L (4-50) Total Protein 6.4 g/dL (6.4-8.2) 7.0 g/dL (6.4-8.2) Albumin 3.3 g/dL (3.4-5.0) 3.2 g/dL (3.4-5.0) Influenza Type A Antigen Negative (NEGATIVE) Influenza Type B Antigen Negative (NEGATIVE) SARS-CoV-2 Antigen (Rapid) Negative (NEGATIVE) BUN/Creatinine Ratio 14 (6-20) Albumin/Globulin Ratio 0.8 (1.0-1.7) Laboratory Tests Test 06/21/21 18:42 06/21/21 21:45 06/22/21 07:40 06/22/21 09:26 White Blood Count 7.6 x10^3/uL (4.0-11.0) 8.4 x10^3/uL (4.0-11.0) Red Blood Count 4.48 x10^6/uL (3.50-5.40) 4.65 x10^6/uL (3.50-5.40) Hemoglobin 13.1 g/dL (12.0-15.5) 13.6 g/dL (12.0-15.5) Hematocrit 38.9 % (36.0-47.0) 41.6 % (36.0-47.0) Mean Corpuscular Volume 87 fL (79-100) 90 fL (79-100) Mean Corpuscular Hemoglobin 29 pg (25-35) 29 pg (25-35) Mean Corpuscular Hemoglobin Concent 34 g/dL (31-37) 33 g/dL (31-37) Red Cell Distribution Width 13.5 % (11.5-14.5) 13.7 % (11.5-14.5) Platelet Count 250 x10^3/uL (140-400) 234 x10^3/uL (140-400) Neutrophils (%) (Auto) 65 % (31-73) 66 % (31-73) Lymphocytes (%) (Auto) 26 % (24-48) 25 % (24-48) Monocytes (%) (Auto) 7 % (0-9) 6 % (0-9) Eosinophils (%) (Auto) 1 % (0-3) 2 % (0-3) Basophils (%) (Auto) 1 % (0-3) 1 % (0-3) Neutrophils # (Auto) 4.9 x10^3/uL (1.8-7.7) 5.6 x10^3/uL (1.8-7.7) Lymphocytes # (Auto) 2.0 x10^3/uL (1.0-4.8) 2.1 x10^3/uL (1.0-4.8) Monocytes # (Auto) 0.5 x10^3/uL (0.0-1.1) 0.5 x10^3/uL (0.0-1.1) Eosinophils # (Auto) 0.1 x10^3/uL (0.0-0.7) 0.1 x10^3/uL (0.0-0.7) Basophils # (Auto) 0.1 x10^3/uL (0.0-0.2) 0.1 x10^3/uL (0.0-0.2) Sodium Level 143 mmol/L (136-145) 144 mmol/L (136-145) Potassium Level 4.4 mmol/L (3.5-5.1) 3.8 mmol/L (3.5-5.1) Chloride Level 105 mmol/L (98-107) 108 mmol/L (98-107) Carbon Dioxide Level 28 mmol/L (21-32) 29 mmol/L (21-32) Anion Gap 10 (6-14) 7 (6-14) Blood Urea Nitrogen 14 mg/dL (7-20) 13 mg/dL (7-20) Creatinine 0.9 mg/dL (0.6-1.0) 0.9 mg/dL (0.6-1.0) Estimated GFR (Cockcroft-Gault) 60.1 60.1 Glucose Level 117 mg/dL (70-99) 89 mg/dL (70-99) Calcium Level 9.0 mg/dL (8.5-10.1) 8.6 mg/dL (8.5-10.1) Magnesium Level 2.3 mg/dL (1.8-2.4) Total Bilirubin 0.5 mg/dL (0.2-1.0) 0.4 mg/dL (0.2-1.0) Direct Bilirubin < 0.1 mg/dL (0.0-0.2) Aspartate Amino Transf (AST/SGOT) 34 U/L (15-37) 19 U/L (15-37) Alanine Aminotransferase (ALT/SGPT) 26 U/L (14-59) 19 U/L (14-59) Alkaline Phosphatase 115 U/L (46-116) 129 U/L (46-116) Ammonia 25 mcmol/L (11-34) Creatine Kinase 65 U/L (26-192) Troponin I High Sensitivity < 4 ng/L (4-50) Total Protein 6.4 g/dL (6.4-8.2) 7.0 g/dL (6.4-8.2) Albumin 3.3 g/dL (3.4-5.0) 3.2 g/dL (3.4-5.0) Influenza Type A Antigen Negative (NEGATIVE) Influenza Type B Antigen Negative (NEGATIVE) SARS-CoV-2 Antigen (Rapid) Negative (NEGATIVE) BUN/Creatinine Ratio 14 (6-20) Albumin/Globulin Ratio 0.8 (1.0-1.7) Brief Hospital Course Ms Amin is an 81 year old female w/ PMHx alzheimer dementia who presents with syncope at her assisted living facility, sudden, associated with a heart rate in the 40s on scene. She was noted to get up after going to the restroom and sit down and after sitting down passed out per facility staff. She is a very poor historian due to poor recall related to her dementia. No prior hx of VTE, arrhythmias and no CAD. She was in ED in 02/10/2021 due to complains of syncope and discharge from there. There was no arrhythmias noted at that time and no acute changes were noted and no etiology in regards to syncope or recommendation to follow with cardiology. Patient has a past medical history of Alzheimer's dementia and at her baseline is A and O x 1-2. As per the family no history of coronary disease or arrhythmia. She is on Cymbalta 30 mg twice daily and Seroquel 25 mg during the day and 50 mg nightly as well as memantine 5 mg twice daily. Labs with WBC 7.6, Hb 13.1 platelets 250, NA 143, K4.4, BUN 14, CR 0.6, glucose 117, albumin 3.3 otherwise LFTs within normal laboratory limits, CK 65, high- sensitivity troponin is less than 4, ammonia is 25, rapid influenza negative, rapid COVID-19 negative EKG obliteration appears to be sinus rhythm rate of 68 bpm normal axis and intervals no ST changes, TWI in V1 V2 V3 V4. CT head with no acute bleed, chest radiograph with bibasilar hazy airspace disease. Consult: Cardiology Seen by cardiology no telemetry events noted. Underwent echocardiogram and carotid Doppler. Would recommend decreasing Cymbalta to once daily for 2 weeks and then take every other day for 2 weeks and then stop if adjunctive antidepressant therapy is necessary would recommend Celexa 10 mg daily. Would recommend discontinuing Seroquel during the day and reduced to 25 mg at night. HEENT: Head normocephalic, atraumatic. NECK: Supple LUNGS: Clear to auscultation. HEART: RRR, S1, S2 present, pulses intact ABDOMEN: Soft, positive bowel sounds. EXTREMITIES: No cyanosis or edema. NEUROLOGIC: Normal speech, normal tone PSYCHIATRIC: Normal affect, normal mood. SKIN: No ulceration. Problem list: Syncope - likely vasovagal, will check orthostatics we will check carotid Dopplers check echocardiogram. Daughter and have made it clear that they do not want an intensive work-up and would like to go back maybe with a reduced medication regimen Reported bradycardia -not noted on the inpatient side or on EKG. Alzheimers dementia -on Namenda as well as supplemental Cymbalta and Seroquel we will back off on Cymbalta once daily. Elevated blood pressure without a diagnosis of hypertension Greater than 30 minutes spent on discharge to assisted living with care and his physician directed home health Discharge Information Condition at Discharge: Improved Follow Up: Weeks Disposition/Orders: D/C to Home w/ HH Scheduled Aspirin (Aspirin) 81 Mg Tab.chew, 1 TAB PO DAILY for blood thinner , #30 Ref 3 (Reported) Entered as Reported by: JUAN LUIS OH on 06/21/212248 Last Taken: Unknown Dose on 06/21/21 Last Action: Continued on 06/22/21727 by HALIMA RAMIREZ MD Duloxetine Hcl (Cymbalta) 30 Mg Capsule., 1 CAP PO DAILY for home med, #30 Ref 5 (Reported) Entered as Reported by: JUAN LUIS OH on 06/21/212248 Last Taken: Unknown Dose on 06/21/21 Last Action: Continued on 06/22/21727 by HALIMA RAMIREZ MD Magnesium Chloride (Slow-Mag) 71.5 Mg Tablet., 1 TAB PO BID for mag lvl for 30 Days, #60 Ref 0 (Reported) Entered as Reported by: JUAN LUIS OH on 06/21/212248 Last Taken: Unknown Dose on 06/21/21 Last Action: Converted on 06/22/21727 by HALIMA RAMIREZ MD Memantine Hcl (Namenda) 10 Mg Tablet, 1 TAB PO BID for memory , #180 Ref 1 (Reported) Entered as Reported by: JUAN LUIS OH on 06/21/212248 Last Taken: Unknown Dose on 06/21/21 Last Action: Continued on 06/22/21727 by HALIMA RAMIREZ MD Multivits-Min/Iron/FA/Lutein (Centrum Silver Women Tablet) 1 Each Tablet, 1 EACH PO DAILY for vitamin , (Reported) Entered as Reported by: JUAN LUIS OH on 06/21/212248 Last Taken: Unknown Dose on 06/21/21 Last Action: Converted on 06/22/21727 by HALIMA RAMIREZ MD Polyethylene Glycol 3350 (Miralax) 17 Gm Powd.pack, 1 PACKET PO DAILY for constipation for 2 Days, #2 Ref 0 (Reported) dissolve in water Entered as Reported by: JUAN LUIS OH on 06/21/212248 Last Taken: Unknown Dose on 06/21/21 Last Action: Continued on 06/22/21727 by HALIMA RAMIREZ MD Scheduled PRN Loperamide Hcl (Loperamide) 2 Mg Tablet, 1 TAB PO PRN Q6HRS PRN for DIARRHEA for 30 Days, Ref 0 (Reported) Entered as Reported by: JUAN LUIS OH on 06/21/21 [id number] Last Taken: Unknown Dose on 06/21/21 Last Action: Converted on 06/22/21 07 by HALIMA RAMIREZ MD Justicifation of Admission Dx: Justifications for Admission: Justification of Admission Dx: Yes HALIMA RAMIREZ MD June 22, 2021 14:50
--- NOTE | 2021-06-22 15:00 | NUR ---
Discharge Note: HOLDEN LAINEZ Discharge instructions and discharge home medications reviewed with Patient and a copy given. All questions have been answered and understanding verbalized. The following instructions and handouts were given: syncope Patient discharged to [facility] with spouse via wheelchair.
--- NOTE | 2021-06-22 16:25 | RAD ---
EXAM: Bilateral carotid artery duplex Doppler ultrasound with waveform analysis. CLINICAL HISTORY: Syncope. Cardiac murmur.. . TECHNIQUE: Longitudinal and transverse sonographic images of the bilat. carotid arteries was performe d utilizing grayscale, color and spectral Doppler techniques. COMPARISON: No prior FINDINGS: Right Carotid: There is mild echogenic plaquing with less than 50% diameter stenosis of the ICA. Left Carotid: Minimal smooth soft intimal plaquing without measurable stenosis. Vertebrals: Antegrade blood flow bilateral vertebral arteries. Right: PSV CCA (cm/s): 57 PSV ICA (cm/s): 69 EDV ICA (cm/s): 21 PSV ECA (cm/s): 66 Subclavian PSV (cm/s): Not measured ICA/CCA Ratio: 1.2 Left: PSV CCA (cm/s): 83 PSV ICA (cm/s): 61 EDV ICA (cm/s): 19 PSV ECA (cm/s): 57 Subclavian PSV (cm/s): Not measured ICA/CCA Ratio: 1.0 IMPRESSION: Mild plaquing without hemodynamically significant stenosis of the bilateral cervical carotid arteries . Both vertebral arteries demonstrate patent antegrade blood flow. Consensus Panel Rai-scale and Doppler US Criteria for Diagnosis of ICA Stenosis Degree of Stenosis (%) ICA PSV (Cm/sec) Plaque Estimate (%)* Normal <125 None <50 <125 <50 50-69 125-230 >50 >70 but < near occlusion >230 >50 Near occlusion High, low, or undetectable Visible Total occlusion Undetectable Visible, no detectable lumen *Plaque estimate (diameter reduction) with rai-scale and color Doppler US Degree of Stenosis (%) ICA/CCA PSV Ratio ICA EDV (cm/sec) Normal <2.0 <40 <50 <2.0 <40 50-69 2.0-4.0 40-100 >70 but < near occlusion >4.0 >100 Near occlusion Variable Variable Total occlusion Not applicable Not applicable Electronically signed by: Alex Hull MD (06/22/2021 4:23 PM) [facility]
== END 2021-06-22 15:10 | disposition home health service (06) | DRG 312 ==
LOC: ER 18:22 → ED HOLD 20:30 → 6 SOUTH 06-22 07:21
PROVIDERS: ADMIT Internal Medicine; ATTEND Internal Medicine
DX: R55 Syncope and collapse (principal); F02.80 Dementia in other diseases classified elsewhere, unspecified severity, without behavioral disturbance, psychotic disturbance, mood disturbance, and anxiety; G30.9 Alzheimer's disease, unspecified; G31.9 Degenerative disease of nervous system, unspecified; Z20.822 Contact with and (suspected) exposure to COVID-19; Z79.899 Other long term (current) drug therapy; Z82.0 Family history of epilepsy and other diseases of the nervous system; Z85.3 Personal history of malignant neoplasm of breast; K57.90 Diverticulosis of intestine, part unspecified, without perforation or abscess without bleeding; M19.90 Unspecified osteoarthritis, unspecified site; R00.1 Bradycardia, unspecified; I10 Essential (primary) hypertension
CPT/HCPCS: 36415; 70450; 71045; 80048; 80053; 80076; 82140; 82550; 83735; 84484; 85025; 87040; 87428; 93005; 93306; 93880; 96360; J7030; 99285-25; C8929